=== PATIENT | male | born 1940 | race Caucasian/White ===

== ENCOUNTER 2020-11-24 18:40 | Emergency (ER) | payer MEDICARE, OTHER ==
[2020-11-24 19:33] LABS: Absolute Neutrophil Ct (ANC) 8.92 (1.4-6.9); BASOPHIL % 0.1 % (0.0-0.4); Basophil (Absolute #) 0.01 (0-0.4); Eosinophil % 0.3 % (0.00-5.0); Eosinophil (Absolute #) 0.03 (0-0.5); Hematocrit 44.9 % (42-50); Hemoglobin 14.2 gm/dl (12.5-18.0); Mean Cell Volume 97.4 fl (78-100); Mean Corpuscular Hemoglobin 30.8 pg (26-32); Mean Corpuscular Hgb Concent. 31.6 g/dl (32-36); Mean Platelet Volume 9.1 fl (7.5-11.0); Monocyte (Absolute #) 0.99 (0.0-1.3); Neutrophil % 80.6 % (36.0-66.0); Platelet Count 261 K/mm3 (150-450); Red Blood Count 4.61 M/mm3 (4.1-5.6); Red Cell Distribution Width 14.5 % (11.5-14.0); White Blood Count 11.1 K/mm3 (4.0-10.5)
[2020-11-24 19:43] LABS: INR 1.56 (0.8-3.0); PROTIME 17.7 SECONDS (8.83-12.87)
[2020-11-24 19:46] LABS: PTT 31.1 SECONDS (24.1-36.1)
[2020-11-24 19:58] LABS: ALBUMIN 4.4 g/dL (3.5-5.0); ALKALINE PHOSPHATASE 96 U/L (38-126); BLOOD UREA NITROGEN 15 mg/dL (9-20); CHLORIDE 83 mmol/L (98-107); Calcium 9.1 mg/dL (8.4-10.2); Creatinine 1 0.94 mg/dL (0.66-1.25); EST GLOMERULAR FILTRATION RATE > 60.0 ML/MIN; Glucose 102 mg/dL (74-106); MAGNESIUM 2.1 mg/dL (1.6-2.3); NT PRO BNP 1930 pg/mL (0-1800); SGOT/AST 29 U/L (17-59); SGPT/ALT 36 U/L (0-50); SODIUM 133 mmol/L (137-145); Total Protein 7.8 g/dL (6.3-8.2)
[2020-11-24 20:01] LABS: Appearance CLEAR (CLEAR); Bilirubin NEGATIVE (NEGATIVE); Blood MODERATE Ery/ul (0-5); Glucose NEGATIVE (NEGATIVE); Ketones TRACE (NEGATIVE); Leukocyte Esterase NEGATIVE (NEGATIVE); Mucus SLIGHT /HPF (NEGATIVE); Nitrite NEGATIVE (NEGATIVE); Protein,Urine Dip 30 (Negative); Specific Gravity 1.018 (1.005-1.025); Urobilinogen 4 mg/dL (0-1); WBC 0-2 /HPF (0-5)
[2020-11-24 20:02] LABS: Carbon Dioxide 39 mmol/L (22-30); Potassium 2.4 mmol/L (3.5-5.1)
[2020-11-24 20:03] LABS: ANION GAP 13 MEQ/L (5-15)
--- NOTE | 2020-11-24 20:22 | ERPHSYRPT ---
- History of Present Illness Source: patient Exam Limitations: other (Poor historian) Patient Subjective Stated Complaint: Pt states that he is short of breath, stated that he had high blood pressure but it is notmal at this time, weak, lethargic, pt was in the hospital a couple of weeks ago for fluid around the heart and lungs and drains were placed in his chest, pt had pneumonia at that time, stats that it hurts to breath Triage Nursing Assessment: Pt brought to the ER by his , hypoxic, placed on 2L NC, rates chest pain as 7/10 when he takes a breath, winded when walking, pulses normal, skin n/w/d Physician History: 80 yo wm w dyspnea x 1 month. Pt has been dyspneic since pericardial effusion drainage in September at [place]. Pt had a subjective fever at home but denies CP/N/V/melena/hematochezia/dysuria/hematuria. Timing/Duration: other (1month) Activities at Onset: rest Severity of Dyspnea-Max: moderate Severity of Dyspnea-Current: moderate Possible Cause: chronic episodes Modifying Factors: Improves With: exertion Associated Symptoms: fever, loss of appetite, weakness, painful breathing, No intermittent, No anxiety, No cough, No chest pain/discomfort, No edema, No insomnia, No lightheadedness, No wheezing, No ankle swelling, No chills, No hemoptysis, No calf pain, No dizziness, No heaviness, No heart racing, No lightheadedness, No leg swelling, No muscle spasms feet, No muscle spasms hands, No productive cough, No sweating, No tightness, No tingling face, No tingling hands Allergies/Adverse Reactions: No Known Drug Allergies Allergy (Verified 11/24/20 19:01) Home Medications: Amiodarone HCl [Pacerone] 1 ea DAILY 11/24/20 [History] Apixaban [Eliquis] 1 ea BID 11/24/20 [History] Chlorthalidone 1 ea DAILY 11/24/20 [History] Diltiazem HCl [Diltiazem 24Hr Cd] 1 ea DAILY 11/24/20 [History] Tamsulosin HCl 0.4 mg [Flomax 0.4 MG] 1 ea DAILY 11/24/20 [History] Travel Risk - International Travel Have you traveled outside of the country in past 3 weeks: No - Coronavirus Screening Are you exhibiting any of the following symptoms?: No Close contact with a COVID-19 positive Pt in past 14-21 Days: No - Vaccine Status Have you recieved a Covid-19 vaccination: Yes 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[employer] - Vaccination Dates Date of 2cond Vaccination (if applicable): 08/03/2020 - Review of Systems Constitutional: No Symptoms, Fatigue, Weakness Eyes: No Symptoms Ears, Nose, & Throat: No Symptoms Respiratory: No Symptoms, Dyspnea, Dyspnea on Exertion (CORRALES) Cardiac: No Symptoms Abdominal/Gastrointestinal: No Symptoms Genitourinary Symptoms: No Symptoms Musculoskeletal: No Symptoms Skin: No Symptoms Neurological: No Symptoms Psychological: No Symptoms Endocrine: No Symptoms Hematologic/Lymphatic: No Symptoms Immunological/Allergic: No Symptoms - Past Medical History Pertinent Past Medical History: Yes Cardiac History: Arrhythmia, Hypertension Other Medical History: myasthenia gravis - Past Surgical History Past Surgical History: Yes Respiratory: Chest Surgery Gastrointestinal: Cholecystectomy Other Surgical History: thymus removed - Social History Smoking Status: Former smoker Exposure to second hand smoke: No Drug Use: none Patient Lives Alone: No Significant Family History: no pertinent family hx - Nursing Vital Signs Nursing Vital Signs: Initial Vital Signs Temperature 99.6 F 11/24/20 18:44 Pulse Rate 90 11/24/20 18:44 Respiratory Rate 20 11/24/20 18:44 Blood Pressure 123/85 11/24/20 18:44 O2 Sat by Pulse Oximetry 85 L 11/24/20 18:44 Pain Scale Pain Intensity 2 - Physical Exam General Appearance: mild distress Eye Exam: PERRL/EOMI, eyes nml inspection Ears, Nose, Throat Exam: hearing grossly normal, normal ENT inspection, normal pharynx Neck Exam: normal inspection, non-tender, supple, full range of motion, No Brudzinski, No Kernig's, No meningismus Respiratory Exam: other (Decreased BS at bases B w bibasilar rales) Cardiovascular/Chest Exam: regular rate/rhythm, murmur, gallop/S3 Abdominal/Gastrointestinal Exam: soft, normal bowel sounds, No tenderness Extremity Exam: non-tender, normal range of motion, normal inspection Peripheral Pulses Exam: carotid (R): 2+, carotid (L): 2+ Neurologic Exam: alert, oriented x 3, cooperative, lead former II-XII nml as tested, normal mood/affect, sensation nml, No motor deficits, No sensory deficit Skin Exam: normal color, warm, dry Lymphatic Exam: No adenopathy SpO2 Interpretation: normal SpO2: 95 (After 2L O2 NC applied/Arrived hypoxic) O2 Delivery: Nasal Cannula - Course Nursing assessment & vital signs reviewed: Yes EKG Interpreted by Me: RATE (NSR/R80/RBBB/Prolonged QTc/Flat Twaves) - Radiology Exams Chest X-ray Interpretation: Interpreted by me (L pleural effusion/Chronic changes) - CT Exams Chest CT Interpretation: Tele-radiologist Report (B pleural effusion/Moderate pericar dial effusion) Ordered Tests: Active Orders 24 hr Category Date Time Status EKG-ER Only STAT Care 11/24/20 20:23 Active IV Insertion STAT Care 11/24/20 18:56 Active Oxygen-ED Only Nasal Cannula 4 lpm Care 11/24/20 18:56 Active CHEST 1 VIEW (PORTABLE) Stat Exams 11/24/20 19:25 Completed CHEST WITH CONTRAST [CT] Stat Exams 11/24/20 21:03 Taken CBC W DIFF Stat Lab 11/24/20 19:29 Completed CMP Stat Lab 11/24/20 19:29 Completed CULTURE,URINE Stat Lab 11/24/20 19:52 Received D-DIMER QUANTITATIVE Stat Lab 11/24/20 19:29 Completed Lactic Acid Stat Lab 11/24/20 19:24 Completed MAGNESIUM Stat Lab 11/24/20 19:29 Completed NT PRO BNP Stat Lab 11/24/20 19:29 Completed PROTIME WITH INR Stat Lab 11/24/20 19:29 Completed PTT Stat Lab 11/24/20 19:29 Completed TROPONIN Q3H Lab 11/24/20 19:29 Completed TROPONIN Q3H Lab 11/24/20 22:47 Completed TROPONIN Q3H Lab 11/25/20 01:30 Ordered TROPONIN Q3H Lab 11/25/20 04:30 Ordered TROPONIN Q3H Lab 11/25/20 07:30 Ordered UA W/RFX UR CULTURE Stat Lab 11/24/20 19:52 Completed Medication Summary Discontinued Medications Generic Name Dose Route Start Last Admin Trade Name Freq PRN Reason Stop Dose Admin Furosemide 40 mg 11/24/20 20:33 11/24/20 20:40 Lasix 40 Mg/4 Ml IV 11/24/20 20:34 40 mg STAT ONE Administration Furosemide Confirm 11/24/20 20:37 Lasix 40 Mg/4 Ml Administered 11/24/20 20:38 Dose 40 mg .ROUTE .STK-MED ONE Potassium Chloride 40 meq 11/24/20 20:33 11/24/20 20:37 Klor Con 10 Meq PO 11/24/20 20:34 40 meq STAT ONE Administration Potassium Chloride Confirm 11/24/20 20:37 Klor Con 10 Meq Administered 11/24/20 20:38 Dose 40 meq PO .K-MED ONE Lab/Rad Data: Laboratory Result Diagrams 11/24/20 19:29 11/24/20 19:29 Laboratory Results 11/24/20 11/24/20 11/24/20 Range/Units 22:47 19:52 19:29 WBC (4.0-10.5) K/mm3 RBC (4.1-5.6) M/mm3 Hgb (12.5-18.0) gm/dl Hct (42-50) % MCV (78-100) fl MCH (26-32) pg MCHC (32-36) g/dl RDW (11.5-14.0) % Plt Count (150-450) K/mm3 MPV (7.5-11.0) fl Gran % (36.0-66.0) % Eos # (Auto) (0-0.5) Absolute Lymphs (auto) (1.0-4.6) Absolute Monos (auto) (0.0-1.3) Lymphocytes % (24.0-44.0) % Monocytes % (0.0-12.0) % Eosinophils % (0.00-5.0) % Basophils % (0.0-0.4) % Absolute Granulocytes (1.4-6.9) Basophils # (0-0.4) PT (8.83-12.87) SECONDS INR (0.8-3.0) APTT (24.1-36.1) SECONDS D-Dimer 3069 H* (215-500) ng/mL Sodium (137-145) mmol/L Potassium (3.5-5.1) mmol/L Chloride (98-107) mmol/L Carbon Dioxide (22-30) mmol/L Anion Gap (5-15) MEQ/L BUN (9-20) mg/dL Creatinine (0.66-1.25) mg/dL Estimated GFR ML/MIN Glucose (74-106) mg/dL Lactic Acid (0.4-2.0) Calcium (8.4-10.2) mg/dL Magnesium (1.6-2.3) mg/dL Total Bilirubin (0.2-1.3) mg/dL AST (17-59) U/L ALT (0-50) U/L Alkaline Phosphatase (38-126) U/L Troponin I 0.028 (0.000-0.034) ng/mL NT-Pro-B Natriuret Pep (0-1800) pg/mL Serum Total Protein (6.3-8.2) g/dL Albumin (3.5-5.0) g/dL Urine Color YELLOW (YELLOW) Urine Appearance CLEAR (CLEAR) Urine pH 6.0 (5-6) Ur Specific [place] 1.018 (1.005-1.025) Urine Protein 30 (Negative) Urine Ketones TRACE (NEGATIVE) Urine Blood MODERATE (0-5) Elijah/ul Urine Nitrite NEGATIVE (NEGATIVE) Urine Bilirubin NEGATIVE (NEGATIVE) Urine Urobilinogen 4 (0-1) mg/dL Ur Leukocyte Esterase NEGATIVE (NEGATIVE) Urine WBC (Auto) 0-2 (0-5) /HPF Urine RBC (Auto) 6-10 (0-2) /HPF U Epithel Cells (Auto) NONE (FEW) /HPF Urine Bacteria (Auto) NONE (NEGATIVE) /HPF Urine Mucus (Auto) SLIGHT (NEGATIVE) /HPF Urine Culture Reflexed YES (NO) Urine Glucose NEGATIVE (NEGATIVE) mg/dL 11/24/20 11/24/20 11/24/20 Range/Units 19:29 19:29 19:29 WBC (4.0-10.5) K/mm3 RBC (4.1-5.6) M/mm3 Hgb (12.5-18.0) gm/dl Hct (42-50) % MCV (78-100) fl MCH (26-32) pg MCHC (32-36) g/dl RDW (11.5-14.0) % Plt Count (150-450) K/mm3 MPV (7.5-11.0) fl Gran % (36.0-66.0) % Eos # (Auto) (0-0.5) Absolute Lymphs (auto) (1.0-4.6) Absolute Monos (auto) (0.0-1.3) Lymphocytes % (24.0-44.0) % Monocytes % (0.0-12.0) % Eosinophils % (0.00-5.0) % Basophils % (0.0-0.4) % Absolute Granulocytes (1.4-6.9) Basophils # (0-0.4) PT 17.7 H (8.83-12.87) SECONDS INR 1.56 (0.8-3.0) APTT 31.1 (24.1-36.1) SECONDS D-Dimer (215-500) ng/mL Sodium 133 L (137-145) mmol/L Potassium 2.4 L* (3.5-5.1) mmol/L Chloride 83 L (98-107) mmol/L Carbon Dioxide 39 H (22-30) mmol/L Anion Gap 13 (5-15) MEQ/L BUN 15 (9-20) mg/dL Creatinine 0.94 (0.66-1.25) mg/dL Estimated GFR > 60.0 ML/MIN Glucose 102 (74-106) mg/dL Lactic Acid (0.4-2.0) Calcium 9.1 (8.4-10.2) mg/dL Magnesium 2.1 (1.6-2.3) mg/dL Total Bilirubin 1.00 (0.2-1.3) mg/dL AST 29 (17-59) U/L ALT 36 (0-50) U/L Alkaline Phosphatase 96 (38-126) U/L Troponin I 0.025 (0.000-0.034) ng/mL NT-Pro-B Natriuret Pep 1930 H (0-1800) pg/mL Serum Total Protein 7.8 (6.3-8.2) g/dL Albumin 4.4 (3.5-5.0) g/dL Urine Color (YELLOW) Urine Appearance (CLEAR) Urine pH (5-6) Ur Specific [place] (1.005-1.025) Urine Protein (Negative) Urine Ketones (NEGATIVE) Urine Blood (0-5) Elijah/ul Urine Nitrite (NEGATIVE) Urine Bilirubin (NEGATIVE) Urine Urobilinogen (0-1) mg/dL Ur Leukocyte Esterase (NEGATIVE) Urine WBC (Auto) (0-5) /HPF Urine RBC (Auto) (0-2) /HPF U Epithel Cells (Auto) (FEW) /HPF Urine Bacteria (Auto) (NEGATIVE) /HPF Urine Mucus (Auto) (NEGATIVE) /HPF Urine Culture Reflexed (NO) Urine Glucose (NEGATIVE) mg/dL 11/24/20 11/24/20 Range/Units 19:29 19:24 WBC 11.1 H (4.0-10.5) K/mm3 RBC 4.61 (4.1-5.6) M/mm3 Hgb 14.2 (12.5-18.0) gm/dl Hct 44.9 (42-50) % MCV 97.4 (78-100) fl MCH 30.8 (26-32) pg MCHC 31.6 L (32-36) g/dl RDW 14.5 H (11.5-14.0) % Plt Count 261 (150-450) K/mm3 MPV 9.1 (7.5-11.0) fl Gran % 80.6 H (36.0-66.0) % Eos # (Auto) 0.03 (0-0.5) Absolute Lymphs (auto) 1.10 (1.0-4.6) Absolute Monos (auto) 0.99 (0.0-1.3) Lymphocytes % 10.0 L (24.0-44.0) % Monocytes % 9.0 (0.0-12.0) % Eosinophils % 0.3 (0.00-5.0) % Basophils % 0.1 (0.0-0.4) % Absolute Granulocytes 8.92 H (1.4-6.9) Basophils # 0.01 (0-0.4) PT (8.83-12.87) SECONDS INR (0.8-3.0) APTT (24.1-36.1) SECONDS D-Dimer (215-500) ng/mL Sodium (137-145) mmol/L Potassium (3.5-5.1) mmol/L Chloride (98-107) mmol/L Carbon Dioxide (22-30) mmol/L Anion Gap (5-15) MEQ/L BUN (9-20) mg/dL Creatinine (0.66-1.25) mg/dL Estimated GFR ML/MIN Glucose (74-106) mg/dL Lactic Acid 1.5 (0.4-2.0) Calcium (8.4-10.2) mg/dL Magnesium (1.6-2.3) mg/dL Total Bilirubin (0.2-1.3) mg/dL AST (17-59) U/L ALT (0-50) U/L Alkaline Phosphatase (38-126) U/L Troponin I (0.000-0.034) ng/mL NT-Pro-B Natriuret Pep (0-1800) pg/mL Serum Total Protein (6.3-8.2) g/dL Albumin (3.5-5.0) g/dL Urine Color (YELLOW) Urine Appearance (CLEAR) Urine pH (5-6) Ur Specific [place] (1.005-1.025) Urine Protein (Negative) Urine Ketones (NEGATIVE) Urine Blood (0-5) Elijah/ul Urine Nitrite (NEGATIVE) Urine Bilirubin (NEGATIVE) Urine Urobilinogen (0-1) mg/dL Ur Leukocyte Esterase (NEGATIVE) Urine WBC (Auto) (0-5) /HPF Urine RBC (Auto) (0-2) /HPF U Epithel Cells (Auto) (FEW) /HPF Urine Bacteria (Auto) (NEGATIVE) /HPF Urine Mucus (Auto) (NEGATIVE) /HPF Urine Culture Reflexed (NO) Urine Glucose (NEGATIVE) mg/dL - Progress Progress Note: 11/24/20 23:23 40meq po KCl 40mg IV Lasix Pt accepted by ER physician(Angel) at [facility] 11/24/20 23:29 Counseled pt/family regarding: lab results, diagnosis, rad results - Departure Departure Disposition: Transfer Clinical Impression: Pericardial effusion, CHF (congestive heart failure) Condition: Stable Critical Care Time: No Referrals: JUSTIN GUILLEN [Primary Care Provider] - Instructions: Heart Failure
[2020-11-24] MEDS ORDERED: Klor Con 10 MEQ PO ONE ×2 (20:33→20:37)
[2020-11-24] MEDS ORDERED: Lasix 40 MG/4 ML IV ONE (20:33)
[2020-11-24] MEDS ORDERED: Lasix 40 MG/4 ML ONE (20:37)
[2020-11-24 21:22] VITALS: PULSE 80
--- NOTE | 2020-11-24 21:48 | XRAY ---
Indication: Dyspnea. High blood pressure. Comparison: October 31, 2020. Portable chest demonstrates grossly stable left base pleural-parenchymal thickening/scarring and minimal right base subsegmental atelectasis/scarring further detailed on CT chest November 03, 2020. Remaining heart and upper lungs unremarkable. No new cardiopulmonary abnormalities.
[2020-11-24 23:07] VITALS: BP 113/65
[2020-11-24 23:28] VITALS: O2SAT 95
--- NOTE | 2020-11-25 07:18 | XRAY ---
Indication: Dyspnea, chest tightness, and high blood pressure. Multiple contiguous axial images obtained through the chest using 80 cc Isovue 370 contrast and PE protocol. Comparison: November 03, 2020. There is good opacification of the pulmonary arteries to include the lobar and segmental branches. No pulmonary embolus. Heart is now enlarged with increasing moderate pericardial effusion. Aorta remains mildly arteriosclerotic without aneurysm/dissection. Again tiny mediastinal and left hilar calcified nodes. No pathologic mediastinal/hilar lymphadenopathy. Lungs again demonstrates increasing small bibasilar effusions/compressive atelectasis again left greater than right. No new pulmonary mass or nodule. Bony thorax intact again with osteopenia and degenerative changes throughout the spine. Limited upper abdomen demonstrates stable small left lobe hepatic cyst. Impression: 1. Negative pulmonary embolus. 2. Cardiomegaly with increasing pericardial effusion and increasing bilateral pleural effusions favoring cardiac decompensation. Echocardiogram may yield further information. 3. Again incidental pulmonary emphysema, hepatic cyst, and chronic bony findings. Comment: Preliminary interpretation was made by [facility]. No critical discrepancy.
== END 2020-11-24 23:40 | disposition short-term general hospital (02) ==
LOC: ED 18:40
DX: I31.3 Pericardial effusion (noninflammatory) (principal); I50.9 Heart failure, unspecified; Z79.899 Other long term (current) drug therapy; I10 Essential (primary) hypertension
CPT/HCPCS: 36000; 36415; 71045; 71260; 80053; 81001; 83605; 83735; 83880; 84484; 85025; 85379; 85610; 85730; 87086; 93005; 96374; 99285; J1940; A9270-GY

== ENCOUNTER 2021-05-11 10:08 | Day surgery (SDC) | payer MEDICARE, OTHER ==
[2021-05-11] MEDS ORDERED: LIDOCAINE HCL 2% 100 MG/5 ML IJ ONE (10:09)
[2021-05-11] MEDS ORDERED: Decadron 4 MG INJ IV ONE (10:09)
[2021-05-11] MEDS ORDERED: DIPRIVAN 200 MG/20 ML IV ONE (11:16)
[2021-05-11] MEDS ORDERED: Ketamine HCl 50 MG/ML ONE (11:21)
[2021-05-11] MEDS ORDERED: Lactated Ringers 1,000 ML IV ONE (11:53)
--- NOTE | 2021-05-11 12:20 | XRAY ---
Indication: Right C2-C4 MBB. Intraoperative fluoroscopy provided for 16 seconds. 2 digital spot image submitted for interpretation demonstrates posterior needle tips projecting over the expected right C2-C4 nerve roots. Correlate with intraoperative findings/report. Incidental C4-C5 anterior fusion hardware.
--- NOTE | 2021-05-11 12:23 | XRAY ---
16 seconds fluoroscopy time in surgery for right C2-C4 MBB.
== END 2021-05-11 11:27 | disposition home or self-care (01) ==
LOC: SDC-PAIN 10:08
PROVIDERS: ATTEND Psychiatry & Neurology Pain Medicine
DX: M47.812 Spondylosis without myelopathy or radiculopathy, cervical region (principal); I48.91 Unspecified atrial fibrillation; Z79.01 Long term (current) use of anticoagulants; Z79.899 Other long term (current) drug therapy
CPT/HCPCS: 64490; 64491; 72040; 77002; J1100; J2704

== ENCOUNTER 2021-05-30 12:56 | Day surgery (SDC) | payer MEDICARE, OTHER ==
[2021-05-30] MEDS ORDERED: Decadron 4 MG INJ IV ONE (12:57)
[2021-05-30] MEDS ORDERED: LIDOCAINE HCL 2% 100 MG/5 ML IJ ONE (12:57)
[2021-05-30] MEDS ORDERED: DIPRIVAN 200 MG/20 ML IV ONE (14:35)
[2021-05-30] MEDS ORDERED: Lactated Ringers 1,000 ML IV ONE (15:28)
--- NOTE | 2021-05-30 16:38 | XRAY ---
Indication: Left C2-C4 MBB. Intraoperative fluoroscopy provided for 16 seconds. 2 digital spot image submitted for interpretation demonstrates posterior needle tips projecting over the expected left C2-C4 nerve roots. Correlate with intraoperative findings/report. Incidental partially visualized C4-C5 anterior fusion hardware.
--- NOTE | 2021-05-30 16:44 | XRAY ---
16 seconds fluoroscopy time in surgery for left C2-C4 MBB.
== END 2021-05-30 15:00 | disposition home or self-care (01) ==
LOC: SDC-PAIN 12:56
PROVIDERS: ATTEND Psychiatry & Neurology Pain Medicine
DX: M47.812 Spondylosis without myelopathy or radiculopathy, cervical region (principal); I48.91 Unspecified atrial fibrillation; Z79.01 Long term (current) use of anticoagulants; Z79.899 Other long term (current) drug therapy
CPT/HCPCS: 64490; 64491; 72040; 77002; J1100; J2704

== ENCOUNTER 2021-06-27 09:50 | Day surgery (SDC) | payer MEDICARE, OTHER ==
[2021-06-27] MEDS ORDERED: Decadron 4 MG INJ IV ONE (09:51)
[2021-06-27] MEDS ORDERED: BUPIVACAINE 0.5% VIAL IJ ONE (09:51)
[2021-06-27] MEDS ORDERED: Lactated Ringers 1,000 ML IV ONE (11:20)
[2021-06-27] MEDS ORDERED: DIPRIVAN 200 MG/20 ML IV ONE (11:33)
--- NOTE | 2021-06-27 12:26 | XRAY ---
Indication: Right C2-C4 MBB. Intraoperative fluoroscopy provided for 13 seconds. 2 digital spot image submitted for interpretation demonstrates posterior needle tips projecting over the expected right C2-C4 nerve roots. Correlate with intraoperative findings/report. Incidental partially visualized C4-C5 anterior fusion hardware.
--- NOTE | 2021-06-27 12:46 | XRAY ---
13 seconds fluoroscopy time in surgery for right C2-C5 MBB.
== END 2021-06-27 12:15 | disposition home or self-care (01) ==
LOC: SDC-PAIN 09:50
PROVIDERS: ATTEND Psychiatry & Neurology Pain Medicine
DX: M47.812 Spondylosis without myelopathy or radiculopathy, cervical region (principal); I48.91 Unspecified atrial fibrillation; Z79.01 Long term (current) use of anticoagulants; Z79.899 Other long term (current) drug therapy
CPT/HCPCS: 64490; 64491; 72040; 77002; J1100; J2704

== ENCOUNTER 2021-07-11 10:05 | Day surgery (SDC) | payer MEDICARE, OTHER ==
[2021-07-11] MEDS ORDERED: Decadron 4 MG INJ IV ONE (10:06)
[2021-07-11] MEDS ORDERED: BUPIVACAINE 0.5% VIAL IJ ONE (10:06)
[2021-07-11] MEDS ORDERED: DIPRIVAN 200 MG/20 ML IV ONE (12:24)
[2021-07-11] MEDS ORDERED: Lactated Ringers 1,000 ML IV ONE (13:37)
--- NOTE | 2021-07-11 13:46 | XRAY ---
Indication: Left C2-C4 MBB. Intraoperative fluoroscopy provided for 21 seconds. 2 digital spot image submitted for interpretation demonstrates posterior needle tips projecting over the expected left C2-C4 nerve roots. Correlate with intraoperative findings/report.
--- NOTE | 2021-07-11 13:50 | XRAY ---
21 seconds of fluoroscopy was used in surgery for a left C2-C4 MBB.
== END 2021-07-11 12:52 | disposition home or self-care (01) ==
LOC: SDC-PAIN 10:05
PROVIDERS: ATTEND Psychiatry & Neurology Pain Medicine
DX: M47.812 Spondylosis without myelopathy or radiculopathy, cervical region (principal); Z79.899 Other long term (current) drug therapy
CPT/HCPCS: 64490; 64491; 72040; 77002; J1100; J2704

== ENCOUNTER 2021-08-01 06:43 | Day surgery (SDC) | payer MEDICARE, OTHER ==
[2021-08-01] MEDS ORDERED: Decadron 4 MG INJ IJ ONE (06:44)
[2021-08-01] MEDS ORDERED: BUPIVACAINE 0.5% VIAL IJ ONE (06:44)
[2021-08-01] MEDS ORDERED: Xylocaine 1% Vial 30 ML PF IJ ONE (06:44)
[2021-08-01] MEDS ORDERED: DIPRIVAN 200 MG/20 ML IV ONE (08:08)
--- NOTE | 2021-08-01 10:23 | XRAY ---
Indication: Right C2-C4 RFA. Intraoperative fluoroscopy provided for 30 seconds. 2 digital spot image submitted for interpretation demonstrates posterior needle tips projecting over the expected right C2-C4 nerve roots. Correlate with intraoperative findings/report. Incidental partially visualized inferior cervical fusion hardware.
[2021-08-01] MEDS ORDERED: Lactated Ringers 1,000 ML IV ONE (11:19)
--- NOTE | 2021-08-06 09:23 | XRAY ---
30 secs fluoroscopy time in surgery for right C2-C4 RFA.
== END 2021-08-01 08:54 | disposition home or self-care (01) ==
LOC: SDC-PAIN 06:43
PROVIDERS: ATTEND Psychiatry & Neurology Pain Medicine
DX: M47.812 Spondylosis without myelopathy or radiculopathy, cervical region (principal)
CPT/HCPCS: 64490; 64491; 72040; 77002; J1100; J2001; J2704

== ENCOUNTER 2021-08-08 07:48 | Day surgery (SDC) | payer MEDICARE, OTHER ==
[2021-08-08] MEDS ORDERED: Xylocaine 1% Vial 30 ML PF IJ ONE (07:49)
[2021-08-08] MEDS ORDERED: BUPIVACAINE 0.5% VIAL IJ ONE (07:49)
[2021-08-08] MEDS ORDERED: Decadron 4 MG INJ IV ONE (07:49)
[2021-08-08] MEDS ORDERED: DIPRIVAN 200 MG/20 ML IV ONE (09:44)
[2021-08-08] MEDS ORDERED: Lactated Ringers 1,000 ML IV ONE (10:27)
--- NOTE | 2021-08-08 10:35 | XRAY ---
Indication: Left C2-C4 RFA. Intraoperative fluoroscopy provided for 25 seconds. 3 digital spot images submitted for interpretation demonstrates posterior needle tips projecting over the expected left C2-C4 nerve roots. Correlate with intraoperative findings/report.
--- NOTE | 2021-08-08 10:37 | XRAY ---
25 seconds fluoroscopy time in surgery for left C2-C4 RFA.
== END 2021-08-08 10:20 | disposition home or self-care (01) ==
LOC: SDC-PAIN 07:48
PROVIDERS: ATTEND Psychiatry & Neurology Pain Medicine
DX: M47.812 Spondylosis without myelopathy or radiculopathy, cervical region (principal); Z79.01 Long term (current) use of anticoagulants; Z79.899 Other long term (current) drug therapy
CPT/HCPCS: 01939; 64633; 64634; 72040; 77002; 99100; J1100; J2001; J2704

== ENCOUNTER 2022-06-29 20:46 | Emergency (ER) | payer MEDICARE, OTHER ==
[2022-06-29 21:02] VITALS: BP 132/68; PULSE 63; O2SAT 96
[2022-06-29] MEDS ORDERED: DELTASONE 20 MG PO ONE (21:31)
[2022-06-29] MEDS ORDERED: DELTASONE 20 MG ONE (21:34)
--- NOTE | 2022-06-29 21:41 | ERPHSYRPT ---
- History of Present Illness Time Seen by Provider: 06/29/22 20:48 Source: patient Exam Limitations: no limitations Patient Subjective Stated Complaint: cough x3 weeks, sob with dyspnea Triage Nursing Assessment: pt ambulated into ER without diff, at bedside. Pt c/o prod cough, scant amt of white sputum. Pt has had this cough x3 weeks. Pt has dyspnea with exertion. Pt has not coughed since being here and states, "he feels better now since he got some sputum up before coming in". Lungs clear ant and post, heart tones reg. Pt has occasional audible wheeze noted while sitting up. Pt is currently Levofloxacin, has 2 days left. Physician History: 82 years old male with history of atrial fibrillation with Eliquis presented to the ER with chief complaint of cough productive of initially yellow-green sput um, has been on antibiotics for the last few days presented with clear second sputum with congestion. Patient is worried about pneumonia. Reports no chest pain or palpitations but because of coughing sometimes get short of breath with activities. Patient has minimal wheezing and using inhalers. No fever or chills reported. Timing/Duration: week(s) (3), intermittent Cough Quality/Degree: mild, moderate, productive cough, sputum Possible Cause: unknown cause Modifying Factors: Worsens With: coughing, exertion Associated Symptoms: cough, nasal congestion, shortness of breath, sinus infection, wheezing Allergies/Adverse Reactions: No Known Drug Allergies Allergy (Verified 06/29/22 21:12) Home Medications: Amiodarone HCl [Pacerone] 1 ea DAILY 11/24/20 [History] Apixaban [Eliquis] 1 ea BID 11/24/20 [History] Chlorthalidone 1 ea DAILY 11/24/20 [History] Tamsulosin HCl 0.4 mg [Flomax 0.4 MG] 1 ea PO DAILY 11/24/20 [History] dilTIAZem HCL [Diltiazem 24Hr Cd] 1 ea PO DAILY 11/24/20 [History] Levofloxacin [Levofloxacin 500 MG Tablet] 500 mg PO DAILY 06/29/22 [History] Hx Tetanus, Diphtheria Vaccination/Date Given: Yes Hx Influenza Vaccination/Date Given: Yes Hx Pneumococcal Vaccination/Date Given: Yes Immunizations Up to Date: Yes Travel Risk - International Travel Have you traveled outside of the country in past 3 weeks: No - Coronavirus Screening Are you exhibiting any of the following symptoms?: Yes Symptoms: Cough: New Onset, Shortness of Breath Close contact with a COVID-19 positive Pt in past 14-21 Days: No - Vaccine Status Have you recieved a Covid-19 vaccination: Yes 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 - Review of Systems Constitutional: No Symptoms Eyes: No Symptoms Ears, Nose, & Throat: No Symptoms Respiratory: Cough, Wheezing Cardiac: No Symptoms Abdominal/Gastrointestinal: No Symptoms Genitourinary Symptoms: No Symptoms Musculoskeletal: No Symptoms Skin: No Symptoms Neurological: No Symptoms Hematologic/Lymphatic: No Symptoms Immunological/Allergic: No Symptoms - Past Medical History Pertinent Past Medical History: Yes Cardiac History: Arrhythmia, Hypertension GI Medical History: Gallbladder Disease Other Medical History: myasthenia gravis, back surgery, neck surgery - Past Surgical History Past Surgical History: Yes Respiratory: Chest Surgery Gastrointestinal: Cholecystectomy Other Surgical History: thymus removed - Social History Smoking Status: Never smoker Exposure to second hand smoke: No Drug Use: none Patient Lives Alone: No Significant Family History: no pertinent family hx - Nursing Vital Signs Nursing Vital Signs: Initial Vital Signs Temperature 96.7 F 06/29/22 21:00 Pulse Rate 63 06/29/22 21:00 Respiratory Rate 22 06/29/22 21:00 Blood Pressure 132/68 06/29/22 21:00 O2 Sat by Pulse Oximetry 96 06/29/22 21:00 Pain Scale Pain Intensity 5 - Physical Exam General Appearance: no apparent distress, alert Ears, Nose, Throat Exam: pharyngeal erythema Neck Exam: normal inspection, supple, full range of motion Respiratory Exam: normal breath sounds, lungs clear Cardiovascular Exam: normal heart sounds, irregular Back Exam: normal inspection, normal range of motion Extremity Exam: normal inspection, normal range of motion Neurologic Exam: alert, oriented x 3, cooperative Skin Exam: normal color SpO2 Interpretation: normal SpO2: 96 O2 Delivery: Room Air Ordered Tests: Active Orders 24 hr Category Date Time Status CHEST 1 VIEW (PORTABLE) Stat Exams 06/29/22 21:04 Taken Medication Summary Generic Name Dose Route Start Last Admin Trade Name Freq PRN Reason Stop Dose Admin Prednisone 60 mg 06/29/22 21:31 Prednisone 20 Mg Tablet PO 06/29/22 21:32 STAT ONE - Progress Progress: re-examined Air Movement: good Progress Note: 06/29/22 21:48 Is bilateral clear to auscultation. X-rays reviewed by me did not reveal any obvious infiltrative process and has chronic changes. Official report is pending. Patient is offered work-up but he does not want it to be done and he wanted to make sure he does not have pneumonia. Patient is already on antibiotics. I would add short course of steroid to go home. Discussed signs symptoms of worsening needing return to ER which he seems understanding. Stable for discharge. Blood Culture(s) Obtained: No Antibiotics given: No Counseled pt/family regarding: diagnosis, need for follow-up, rad results - Departure Departure Disposition: Extended Care Facility Clinical Impression: Bronchitis Condition: Stable Critical Care Time: No Referrals: KYLER AUGUSTE, [Primary Care Provider] - Follow up/PCP as directed (In 2 days for reevaluation) Instructions: Cough, Adult (DC) Additional Instructions: Continue with inhalers and antibiotics. Follow-up with primary care for reevaluation. Return to ER for worsening cough or if having difficulty breathing, chest pain etc. Prescriptions: Prednisone 20 mg [Deltasone 20 mg] 60 mg PO DAILY 5 Days #15 tablet
--- NOTE | 2022-06-30 09:11 | XRAY ---
Indication: Cough. Comparison: March 18, 2022 Portable apical lordotic chest unchanged again hyperinflated with mild bibasilar fibrosis/scarring. Remaining heart and lungs unremarkable. Bony thorax intact again with osteopenia and degenerative changes. No new/acute findings.
== END 2022-06-29 21:56 | disposition home or self-care (01) ==
LOC: ED 20:46
DX: J40 Bronchitis, not specified as acute or chronic (principal); R05.9 Cough, unspecified; R06.02 Shortness of breath; I10 Essential (primary) hypertension; Z79.01 Long term (current) use of anticoagulants; Z79.52 Long term (current) use of systemic steroids; Z79.899 Other long term (current) drug therapy
CPT/HCPCS: 71045; 99282; A9270-GY

== ENCOUNTER 2024-03-19 09:22 | Emergency (ER) | payer MEDICARE, OTHER ==
[2024-03-19 09:40] VITALS: TEMP 97.9
--- NOTE | 2024-03-19 10:07 | ERPHSYRPT ---
- History of Present Illness Time Seen by Provider: 03/19/24 09:48 Source: patient Exam Limitations: no limitations Patient Subjective Stated Complaint: pt here for eyes watering, head pressure for over 2 months now, unsteady today has been seen by eye dr and family doc. w as placed on new eye drips, pt denies any falls, Triage Nursing Assessment: pt walked in, gait unsteady at times. was able to undress, resp easy, no cough, eyes red and tearing, follows commond well.moves all ext well, Physician History: For the past 2 months pt has had occipital head pressure and bloodshot eyes; has been on cipro for the past 2 days for a sinus infection. Pt's states he has never has a CT-head. Pt denies chest pain, shortness of air, fever. Pt was prescribed eye drops by his eye doctor a few days ago. Allergies/Adverse Reactions: No Known Drug Allergies Allergy (Verified 03/19/24 09:40) Home Medications: Amiodarone HCl [Pacerone] 1 ea DAILY 11/24/20 [History] Apixaban [Eliquis] 1 ea BID 11/24/20 [History] Chlorthalidone 1 ea DAILY 11/24/20 [History] Tamsulosin HCl 0.4 mg [Flomax 0.4 MG] 1 ea PO DAILY 11/24/20 [History] dilTIAZem HCL [Diltiazem 24Hr Cd] 1 ea PO DAILY 11/24/20 [History] Levofloxacin [Levofloxacin 500 MG Tablet] 500 mg PO DAILY 06/29/22 [History] Hx Tetanus, Diphtheria Vaccination/Date Given: Yes Hx Influenza Vaccination/Date Given: No Hx Pneumococcal Vaccination/Date Given: Yes Immunizations Up to Date: Yes Travel Risk - International Travel Have you traveled outside of the country in past 3 weeks: No - Emerging Infectious Disease Are you exhibiting symptoms associated with any current EIDs: No - Review of Systems Constitutional: No Fever Eyes: Eye Redness Respiratory: No Dyspnea Cardiac: No Chest Pain Neurological: Headache - Past Medical History Pertinent Past Medical History: Yes Cardiac History: Arrhythmia, Hypertension GI Medical History: Gallbladder Disease Other Medical History: myasthenia gravis, back surgery, neck surgery - Past Surgical History Past Surgical History: Yes Respiratory: Chest Surgery Gastrointestinal: Cholecystectomy Other Surgical History: thymus removed Significant Family History: no pertinent family hx - Social History Smoking Status: Former smoker Exposure to second hand smoke: No Drug Use: none Patient Lives Alone: No - Social Determinants of Health Will the patient participate in the screening: Declined to provide - Nursing Vital Signs Nursing Vital Signs: Initial Vital Signs Temperature 97.9 F 03/19/24 09:38 Pulse Rate 61 03/19/24 09:38 Respiratory Rate 18 03/19/24 09:38 Blood Pressure 158/89 03/19/24 09:38 O2 Sat by Pulse Oximetry 97 03/19/24 09:38 Pain Scale Pain Intensity 4 - Physical Exam General Appearance: alert Eye Exam: other (bilateral conjunctival injection) Ears, Nose, Throat Exam: TMs normal, pharyngeal erythema (mild) Neck Exam: normal inspection Respiratory Exam: lungs clear Cardiovascular Exam: normal heart sounds Gastrointestinal/Abdominal Exam: normal bowel sounds Extremity Exam: normal range of motion Mental Status Exam: alert, cooperative Motor/Sensory Exam: no motor deficit, no sensory deficit Skin Exam: warm, dry SpO2 Interpretation: normal SpO2: 97 O2 Delivery: Room Air - Course Nursing assessment & vital signs reviewed: Yes - CT Exams Head CT Interpretation: Discussed w/radiologist (Nonacute senile brain. Incidental mild paranasal sinuses.) Soft Tissue Neck CT Interpretation: Discussed w/radiologist (Chronic findings including left carotid calcification, pulmonary emphysema and chronic bony findings. Remaining CT neck without contrast exam is negative.) Ordered Tests: Active Orders 24 hr Category Date Time Status IV Insertion STAT Care 03/19/24 10:08 Active HEAD WITHOUT CONTRAST [CT] Stat Exams 03/19/24 10:10 Completed NECK WO CONTRAST [CT] Stat Exams 03/19/24 10:10 Completed CBC W DIFF Stat Lab 03/19/24 10:50 Completed CMP Stat Lab 03/19/24 10:50 Completed MAGNESIUM Stat Lab 03/19/24 10:50 Completed MONO SCREEN Stat Lab 03/19/24 10:50 Completed Medication Summary Generic Name Dose Route Start Last Admin Trade Name Freq PRN Reason Stop Dose Admin Sodium Chloride 500 mls @ 50 mls/hr 03/19/24 10:15 03/19/24 11:02 Sodium Chloride 0.9% 500 Ml IV 04/18/24 10:14 50 mls/hr .Q10H CHELSIE Administration Ceftriaxone Sodium 1 gm in 100 mls @ 200 mls/hr 03/19/24 11:42 Rocephin 1 Gm / 100 Ml Nacl IV 03/19/24 12:11 STAT ONE Discontinued Medications Generic Name Dose Route Start Last Admin Trade Name Juan PRN Reason Stop Dose Admin Acetaminophen 1,000 mg in 100 mls @ 400 mls/hr 03/19/24 10:11 03/19/24 11:00 Ofirmev IV 03/19/24 10:25 400 mls/hr 1HRPRIOR ONE Administration Acetaminophen Confirm 03/19/24 10:58 Ofirmev Administered 03/19/24 10:59 Dose 100 mls @ ud IV .STK-MED ONE Sodium Chloride Confirm 03/19/24 10:58 Sodium Chloride 0.9% 1000 Ml Administered 03/19/24 10:59 Dose 1,000 mls @ ud .ROUTE .STK-MED ONE Lab/Rad Data: Laboratory Result Diagrams 03/19/24 10:50 03/19/24 10:50 Laboratory Results 03/19/24 03/19/24 03/19/24 Range/Units 10:52 10:52 10:50 WBC (4.23-9.07) x10^3/uL RBC (4.63-6.08) x10^6/uL Hgb (13.7-17.5) g/dL Hct (40.1-51.0) % MCV (79.0-92.2) fL MCH (25.7-32.2) pg MCHC (32.3-36.5) g/dL RDW (11.6-14.4) % Plt Count (163-337) x10^3/uL MPV (9.4-12.4) fL Gran % (34.0-67.9) % Immature Gran % (Auto) (0.001-0.429) % Nucleat RBC Rel Count (0.00-0.2) % Eos # (Auto) (0.04-0.54) x10^3/uL Immature Gran # (Auto) (0.001-0.031) x10^3u/L Absolute Lymphs (auto) (1.32-3.57) x10^3/uL Absolute Monos (auto) (0.30-0.82) x10^3/uL Absolute Nucleated RBC (0.00-0.012) x10^3u/L Lymphocytes % (21.8-53.1) % Monocytes % (5.3-12.2) % Eosinophils % (0.8-7.0) % Basophils % (0.2-1.2) % Absolute Granulocytes (1.78-5.38) x10^3/uL Basophils # (0.01-0.08) x10^3/uL Sodium (135-145) mmol/L Potassium (3.5-5.1) mmol/L Chloride (98-107) mmol/L Carbon Dioxide (22-30) mmol/L Anion Gap (5-15) MEQ/L BUN (9-20) mg/dL Creatinine (0.66-1.25) mg/dL Estimated GFR ML/MIN Glucose (74-106) mg/dL Calcium (8.4-10.2) mg/dL Magnesium (1.6-2.3) mg/dL Total Bilirubin (0.2-1.3) mg/dL AST (17-59) U/L ALT (0-50) U/L Alkaline Phosphatase (38-126) U/L Serum Total Protein (6.3-8.2) g/dL Albumin (3.5-5.0) g/dL Monoscreen NEGATIVE (NEGATIVE) Influenza Type A Ag NEGATIVE (NEGATIVE) Influenza Type B Ag NEGATIVE (NEGATIVE) RSV (PCR) NEGATIVE (NEGATIVE) SARS-CoV-2 (PCR) NEGATIVE (NEGATIVE) Group A Strep Antibody NOT DETECTED (NEGATIVE) 03/19/24 03/19/24 Range/Units 10:50 10:50 WBC 6.5 (4.23-9.07) x10^3/uL RBC 4.86 (4.63-6.08) x10^6/uL Hgb 15.7 (13.7-17.5) g/dL Hct 47.0 (40.1-51.0) % MCV 96.7 H (79.0-92.2) fL MCH 32.3 H (25.7-32.2) pg MCHC 33.4 (32.3-36.5) g/dL RDW 13.2 (11.6-14.4) % Plt Count 233 (163-337) x10^3/uL MPV 9.4 (9.4-12.4) fL Gran % 65.6 (34.0-67.9) % Immature Gran % (Auto) 0.2 (0.001-0.429) % Nucleat RBC Rel Count 0.0 (0.00-0.2) % Eos # (Auto) 0.33 (0.04-0.54) x10^3/uL Immature Gran # (Auto) 0.01 (0.001-0.031) x10^3u/L Absolute Lymphs (auto) 1.22 L (1.32-3.57) x10^3/uL Absolute Monos (auto) 0.64 (0.30-0.82) x10^3/uL Absolute Nucleated RBC 0.00 (0.00-0.012) x10^3u/L Lymphocytes % 18.8 L (21.8-53.1) % Monocytes % 9.8 (5.3-12.2) % Eosinophils % 5.1 (0.8-7.0) % Basophils % 0.5 (0.2-1.2) % Absolute Granulocytes 4.27 (1.78-5.38) x10^3/uL Basophils # 0.03 (0.01-0.08) x10^3/uL Sodium 136 (135-145) mmol/L Potassium 4.5 (3.5-5.1) mmol/L Chloride 99 (98-107) mmol/L Carbon Dioxide 30 (22-30) mmol/L Anion Gap 11.9 (5-15) MEQ/L BUN 11 (9-20) mg/dL Creatinine 0.71 (0.66-1.25) mg/dL Estimated GFR 91.0 ML/MIN Glucose 103 (74-106) mg/dL Calcium 9.0 (8.4-10.2) mg/dL Magnesium 2.3 (1.6-2.3) mg/dL Total Bilirubin 0.80 (0.2-1.3) mg/dL AST 43 (17-59) U/L ALT 38 (0-50) U/L Alkaline Phosphatase 63 (38-126) U/L Serum Total Protein 7.3 (6.3-8.2) g/dL Albumin 4.3 (3.5-5.0) g/dL Monoscreen (NEGATIVE) Influenza Type A Ag (NEGATIVE) Influenza Type B Ag (NEGATIVE) RSV (PCR) (NEGATIVE) SARS-CoV-2 (PCR) (NEGATIVE) Group A Strep Antibody (NEGATIVE) Medical Desision Making - Diagnostic Testing Diagnostic test were ordered, analyzed, and reviewed by me: Yes Radiological Interpretation: Discussed w/ radiologist - Departure Departure Disposition: Home Clinical Impression: Headache, Sinusitis, Bilateral conjunctivitis Condition: Stable Critical Care Time: No Referrals: ASHLEIGH JOYNER [Primary Care Provider] - Follow up/PCP as directed Instructions: Headache, Adult (DC), Sinusitis, Adult ED Additional Instructions: Follow up with private doctor tomorrow. Prescriptions: Cefpodoxime Proxetil 200 mg [Vantin 200 mg] 200 mg PO BID #20 tablet
[2024-03-19] MEDS ORDERED: Sodium Chloride 0.9% 1000 ML 0 ML ONE (10:58)
[2024-03-19] MEDS ORDERED: OFIRMEV 100 ML IV ONE (10:58)
[2024-03-19 11:00] LABS: Absolute Neutrophil Ct (ANC) 4.27 x10^3/uL (1.78-5.38); BASOPHIL % 0.5 % (0.2-1.2); Basophil (Absolute #) 0.03 x10^3/uL (0.01-0.08); Eosinophil % 5.1 % (0.8-7.0); Eosinophil (Absolute #) 0.33 x10^3/uL (0.04-0.54); Hemoglobin 15.7 g/dL (13.7-17.5); IMMATURE GRAN # 0.01 x10^3u/L (0.001-0.031); IMMATURE GRAN % 0.2 % (0.001-0.429); Lymphocyte (Absolute #) 1.22 x10^3/uL (1.32-3.57); Lymphocytes % 18.8 % (21.8-53.1); Mean Cell Volume 96.7 fL (79.0-92.2); Mean Corpuscular Hemoglobin 32.3 pg (25.7-32.2); Mean Corpuscular Hgb Concent. 33.4 g/dL (32.3-36.5); Mean Platelet Volume 9.4 fL (9.4-12.4); Monocyte (Absolute #) 0.64 x10^3/uL (0.30-0.82); Monocytes % 9.8 % (5.3-12.2); Neutrophil % 65.6 % (34.0-67.9); Platelet Count 233 x10^3/uL (163-337); Red Blood Count 4.86 x10^6/uL (4.63-6.08); Red Cell Distribution Width 13.2 % (11.6-14.4); White Blood Count 6.5 x10^3/uL (4.23-9.07)
[2024-03-19] MEDS: OFIRMEV 1,000 MG/100 ML ML IV ONE (11:00)
[2024-03-19] MEDS ORDERED: Sodium Chloride 0.9% 500 ML 500 ML IV ONE (11:01)
[2024-03-19] MEDS: Sodium Chloride 0.9% 500 ML 500 ML IV SCH (11:02)
[2024-03-19 11:17] LABS: ALBUMIN 4.3 g/dL (3.5-5.0); ANION GAP 11.9 MEQ/L (5-15); BILIRUBIN,TOTAL 0.8 mg/dL (0.2-1.3); Creatinine 1 0.71 mg/dL (0.66-1.25); MAGNESIUM 2.3 mg/dL (1.6-2.3); Potassium 4.5 mmol/L (3.5-5.1); Total Protein 7.3 g/dL (6.3-8.2)
--- NOTE | 2024-03-19 11:20 | XRAY ---
Indication: Headache/head pressure 2 months. Multiple contiguous axial images obtained through the head without contrast. Comparison: None Age-appropriate global atrophy and minimal periventricular degenerative micro-ischemia bilaterally. No acute intracranial hemorrhage, abnormal extra-axial fluid collection, or mass effect. Fourth ventricle is midline without hydrocephalus. Arias-white matter differentiation preserved. Bony calvarium intact. Mild mucosal thickening both ethmoid and lesser degree right frontal/right maxillary sinuses without fluid leveling. Mastoid air cells are clear. Impression: Nonacute senile brain. Incidental mild paranasal sinuses.
--- NOTE | 2024-03-19 11:24 | XRAY ---
Indication: Headache/pressure 2 months. "Aching neck.". Multiple contiguous axial images obtained through the neck without contrast. Comparison: None Parotid and submandibular glands are bilaterally symmetric. A few tiny cervical and submandibular lymph nodes bilaterally, none pathologically enlarged. Thyroid gland appears homogeneous. Major arteries and veins are normal course and caliber with minimal left carotid calcifications. Supra and infraglottic airway widely patent with normal epiglottis. Lung apices demonstrates pulmonary emphysema and right upper lobe subsegmental atelectasis/scarring. 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 Multilevel flowing osteophytes as seen with diffuse idiopathic skeletal hyperostosis. No acute fracture or suspicious bony lesions. Patient edentulous. Impression: 1. Chronic findings including left carotid calcification, pulmonary emphysema, and chronic bony findings. 2. Remaining CT neck without contrast exam is negative.
[2024-03-19 11:37] LABS: INFLUENZA A NEGATIVE (NEGATIVE); INFLUENZA B NEGATIVE (NEGATIVE); RESPIRATORY SYNCTIAL VIRUS NEGATIVE (NEGATIVE); SARS-CoV-2 Xpert Express NEGATIVE (NEGATIVE)
[2024-03-19] MEDS: ROCEPHIN 1 GM / 100 ML NaCl 1 GM/100 ML IVPB IV ONE (11:50)
[2024-03-19] MEDS ORDERED: ROCEPHIN 1 GM / 100 ML NaCl 1 GM/100 ML IVPB IV ONE (11:50)
[2024-03-19 12:04] VITALS: BP 130/80; PULSE 48; RESP 21; O2SAT 94
== END 2024-03-19 12:45 | disposition home or self-care (01) ==
LOC: ED 09:22
DX: J32.9 Chronic sinusitis, unspecified (principal); R51.9 Headache, unspecified; H10.9 Unspecified conjunctivitis; Z79.899 Other long term (current) drug therapy
CPT/HCPCS: 0241U; 36000; 36415; 70450; 70490; 80053; 83735; 85025; 86308; 87651; 96365; 99284; J0696